=== PATIENT | female | born 1970 | race Asian ===

== ENCOUNTER → 2017-03-07 | Outpatient (CLI) | payer OTHER, BC ==
[~2017-03-07] MED LIST: ACET-1256 PO; CHOL1000 PO; CYCL10TA6 PO
--- NOTE | 2017-03-07 16:52 | DIAGNOSTIC IMAGING REPORT ---
MRI OF THE THORACIC SPINE WITHOUT IV CONTRAST CLINICAL HISTORY: Thoracic pain. Radiculopathy. Known compression deformity. COMPARISON STUDY: Radiographs of the thoracic spine dated 01/28/2017. TECHNIQUE: MRI of the thoracic spine is performed utilizing various T1 and T2-weighted sequences in the axial and sagittal planes. IV contrast was not administered for this examination. FINDINGS: There is a mild compression deformity of T7. There is no marrow edema to suggest acuity. Vertebral body height is otherwise maintained throughout the thoracic spine. Alignment is preserved. The spinous processes appear intact. Marrow signal intensity is homogeneous. The intervertebral discs are normal in height and signal intensity. There is no evidence of disc herniation or central canal compromise. A posterior disc osteophyte complex is noted at C6-C7. No significant neural foraminal stenosis is identified throughout the thoracic spine. The thoracic spinal cord is normal in morphology and signal intensity. The conus medullaris terminates at the level of L1. The paraspinous soft tissues are normal as visualized. There is no evidence of pulmonary abnormality although the lungs are not well evaluated by MRI. IMPRESSION: 1. There is a mild compression deformity of T7. No marrow edema is identified to suggest acuity and this is likely chronic. 2. No acute bony abnormality is identified involving the thoracic spine. 3. There is no disc herniation, central canal stenosis, or neural foraminal narrowing. 4. The thoracic spinal cord is normal in morphology and signal intensity. Dictated: 03/07/2017 4:43 PM Transcribed: 03/07/2017 4:51 PM Marc Electronically signed by: Kumar Paulson M.D. 03/07/2017 4:55 PM Dictated Date/Time: 03/07/2017 4:43 PM
== END | disposition home or self-care (01) ==
LOC: C.MRIBC 15:40
PROVIDERS: ATTEND Physician Assistant
DX: M48.54XA Collapsed vertebra, not elsewhere classified, thoracic region, initial encounter for fracture (principal)

== ENCOUNTER 2017-07-09 18:38 | Emergency (ER) | payer OTHER ==
[~2017-07-09] VITALS: Ht 160 cm; Wt 54.9 kg
[2017-07-09 18:42] VITALS: TEMP 36.4; Ht 160 cm; Wt 54.9 kg
[2017-07-09] MEDS ORDERED: KETOROLAC TROMETHAMINE 60 MG/2 ML VIAL IM STA (19:02)
[2017-07-09] MEDS ORDERED: ONDANSETRON 4MG OD TAB PO STA (19:02)
--- NOTE | 2017-07-09 19:05 | EMERGENCY ROOM VISIT NOTE ---
ED Visit Note First contact with patient: 18:51 CHIEF COMPLAINT: Severe menstrual cramps HISTORY OF PRESENT ILLNESS: This 46-year-old female patient presents to the emergency department, ambulatory, with a male friend, complaining of severe menstrual cramps. The patient states she got her period this evening at approximately 4 PM. She states she frequently gets severe cramps similar to this. She states in the past, she has received an NSAID injection when her cramps get this bad. She states it is been approximately 7 years since she has had cramps as bad as this. She did try taking 1 dose of Tylenol without improvement in her symptoms. She did not take any NSAIDs, because she does not have any at home and states they are too strong and sometimes hurt her kidneys. She does report some nausea associated with the pain. The pain has been unbearable for the past 3 hours. She rates it 10/10 and describes it as cramps. The pain does not go anywhere. The patient denies or pain with intercourse. Her symptoms are consistent with previous episodes. REVIEW OF SYSTEMS: A 10 system review of systems was performed with positives and pertinent negatives listed in the history of present illness. All other systems were reviewed and are negative. ALLERGIES: Morphine MEDICATIONS: None PMH: None SOCIAL HISTORY: The patient lives locally alone. She denies drug, alcohol, tobacco use. PHYSICAL EXAM: VITALS: Vitals are noted on the nurse's note and reviewed by myself. Vital signs stable. GENERAL: This is a 46-year-old female, in no acute distress, nondiaphoretic, well-developed well-nourished. SKIN: The skin was without rashes, erythema, edema, or bruising. There is no tenting of the skin. Capillary reflex less than 2 seconds. HEAD: Normocephalic atraumatic. No tenderness on palpation. NECK: Supple without nuchal rigidity. No lymphadenopathy. No thyromegaly. Cervical spine is nontender. No JVD. HEART: Regular rate and rhythm without murmurs gallops or rubs. LUNGS: Clear to auscultation bilaterally without wheezes, rales or rhonchi. No dullness to percussion. No retractions or accessory muscle use. ABDOMEN: Positive bowel sounds x 4. Normal tympanic percussion. Soft, nontender, without masses or organomegaly. Fernández sign negative. No guarding or rebound tenderness. No CVA tenderness. MUSCULOSKELETAL: No muscle atrophy, erythema, or edema noted. Full range of motion without joint tenderness in all extremities. No tenderness to palpation. Normal gait. Strength 5/5 throughout. NEURO: Patient was alert and oriented to person place and time. Normal sensation to light and sharp touch. Deep tendon reflexes 2+ throughout. No focal neurological deficits. EMERGENCY DEPARTMENT COURSE: The patient was seen and evaluated as above. Her symptoms are consistent with previous episodes of menstrual cramps. The patient declines any workup. She was given 4 mg Zofran sublingual and 60 mg IM Toradol. The patient was reassessed and notes complete improvement in her symptoms. Discharge instructions reviewed, the patient was discharged home in good condition. I attest that I have personally reviewed the patient's current medication list. Patient was found to have normal blood pressure on screening and does not require follow-up. Differential diagnosis includes menstrual cramps, menorrhagia, metrorrhagia, , ectopic , urinary tract infection, nephrolithiasis, STD, malignancy, and others DIAGNOSIS: Menstrual cramps Current/Historical Medications Scheduled Cholecalciferol (Vitamin D3), 1 TAB PO DAILY Scheduled PRN Acetaminophen (Tylenol), 2 TAB PO Q6 PRN for Pain Cyclobenzaprine Hcl (Flexeril), 1 TAB PO HS PRN for Muscle Spasms Allergies Coded Allergies: Morphine (Unverified Allergy, Intermediate, DELIRIUM, 07/09/17) Vital Signs Date Time Temp Pulse Resp B/P (MAP) Pulse Ox O2 Delivery O2 Flow Rate FiO2 07/09/17 18:42 36.4 72 30 111/74 99 Room Air Medications Administered Medications (Trade) Dose Ordered Sig/Tony Route Start Time Stop Time Status Last Admin Dose Admin Ketorolac Tromethamine (Toradol Inj) 60 mg NOW STAT IM 07/09/17 19:02 07/09/17 19:07 DC 07/09/17 19:13 60 MG Departure Information Impression Primary Impression: Menstrual cramps Dispostion Home / Self-Care Condition GOOD Referrals Olga Adames M.D. (PCP) Patient Instructions ED Cramping Menstrual, My [facility] Additional Instructions You were seen in the emergency department today for severe menstrual cramps. You were given a Toradol injection and Zofran. Ibuprofen(Motrin, Advil) may be used for fever or pain. Use 600mg every six hours as needed. Take with food. Avoid using more than 2400mg in a 24 hour period. Do not use 2400mg per day for more than three consecutive days without physician direction. Prolonged inappropriate use can lead to stomach upset or ulcers. You may consider Naproxen (Aleve) 1-2 tablets twice daily to help in place of ibuprofen if needed. You may want to consider pre-medicating with these medications 24 hours prior to period onset. You should track your menses to help determine when your symptoms will begin. (AND/OR) Acetaminophen(Tylenol) may be used for fever or pain. Use 1000mg every six hours as needed. Avoid using more than 3000mg in a 24 hour period. Please follow-up with your primary care provider and/or federal mediation commissioner/ materials engineer for ongoing management of menstrual cramps. Return to the emergency department for significant cramping, pain, bleeding, or other concerns.
[2017-07-09 19:57] VITALS: BP 121/74; PULSE 70; O2SAT 99
== END 2017-07-09 19:59 | disposition home or self-care (01) ==
LOC: C.EDB 18:39 → C.EDD 19:59
DX: N94.6 Dysmenorrhea, unspecified (principal); Z88.6 Allergy status to analgesic agent

== ENCOUNTER → 2017-11-15 | Outpatient (CLI) | payer OTHER ==
--- NOTE | 2017-11-15 10:43 | DIAGNOSTIC IMAGING REPORT ---
L-SPINE MIN 4 VIEWS ROUTINE HISTORY: Pain X COMPARISON: None. FINDINGS: There is no fracture. No subluxation. Disc spaces are preserved. IMPRESSION: No fracture or subluxation within the lumbar spine. The above report was generated using voice recognition software. It may contain grammatical, syntax or spelling errors. Electronically signed by: Basil Sigala M.D. 11/15/2017 10:42 AM Dictated Date/Time: 11/15/2017 10:41 AM
--- NOTE | 2017-11-15 11:12 | DIAGNOSTIC IMAGING REPORT ---
SI JOINTS 3 OR MORE VIEWS CLINICAL HISTORY: Right sacroiliac joint pain. Lower back pain. COMPARISON STUDY: CT of the abdomen and pelvis August 29, 2011. FINDINGS: The sacroiliac joints are intact without evidence for ankylosis. No fracture or suspicious lesion is present. No erosions are identified. There is osteophytosis of both sacroiliac joints. 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 Electronically signed by: Tato Seals M.D. 11/15/2017 11:10 AM Dictated Date/Time: 11/15/2017 11:10 AM
== END | disposition home or self-care (01) ==
LOC: C.RADBC 09:57
PROVIDERS: ATTEND Physician Assistant
DX: M54.5 Low back pain (principal); M46.1 Sacroiliitis, not elsewhere classified